=== PATIENT | male | born 1995 | race Caucasian/White ===

== ENCOUNTER 2017-05-01 13:28 | Outpatient (CLI) | payer OTHER ==
--- NOTE | 2017-05-01 17:18 | MRI Report ---
EXAM: LEFT KNEE MRI WITHOUT CONTRAST EXAM DATE: 05/01/2017 02:12 PM. CLINICAL HISTORY: Injured left knee in February 2007 during volleyball. Clinical concern for articula r cartilage, ACL, MCL, or medial meniscus tear. COMPARISON: None. TECHNIQUE: Multiplanar, multisequence T1-weighted and fluid-sensitive sequences of the knee without c ontrast. Other: None. FINDINGS: Bones: No fractures. Periarticular marrow edema is in the lateral femoral condyle. Red marrow reconve rsion is demonstrated. Articular Cartilage: The patellofemoral articular cartilage is intact. There is mild thinning in the medial compartment articular cartilage. There is focal mild thinning of the inferior lateral femoral condylar articular cartilage in the region of subchondral marrow edema. Medial Meniscus: The posterior horn of the medial meniscus demonstrates a complex tear pattern with l ongitudinal and horizontal components. Lateral Meniscus: The lateral meniscus is intact. Cruciate Ligaments: The anterior cruciate ligament is completely torn. The posterior cruciate ligamen t is intact. Collateral Ligaments: The medial collateral and lateral collateral ligamentous structures are intact. Tendons: The quadriceps, patellar, semimembranosus, and popliteus tendons are unremarkable. Musculature: No edema or fatty atrophy. Other: A mild knee effusion is present. No popliteal cyst. No loose bodies. The medial and lateral r etinacula are intact. The subcutaneous tissues and fat pads are unremarkable. IMPRESSION: 1. 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 2. Tearing of the medial meniscus. 3. Complete tear of the anterior cruciate ligament. [facility] MUSCULOSKELETAL RADIOLOGY SECTION Referring Provider Line: [phone] SITE ID: [id number]
== END 2017-05-01 13:29 | disposition home or self-care (01) ==
LOC: DI 13:28
PROVIDERS: ATTEND Family Medicine
DX: M94.262 Chondromalacia, left knee (principal); S83.242A Other tear of medial meniscus, current injury, left knee, initial encounter; S83.512A Sprain of anterior cruciate ligament of left knee, initial encounter